=== PATIENT | female | born 1955 | race Caucasian/White ===

== ENCOUNTER 2016-09-23 | Outpatient (CLI) | END 2016-09-23 19:22 | disposition critical access hospital (66) | CPT/HCPCS: A0425; A0427 ==

== ENCOUNTER 2016-09-23 19:40 | Emergency (ER) | END 2016-09-23 23:50 | disposition short-term general hospital (02) | CPT/HCPCS: 36415; 71020; 80053; 82550; 82553; 83690; 84484; 85025; 93005; 93010; 96374; 96375; 99284; A9270 ==

== ENCOUNTER 2016-10-04 | Outpatient (CLI) | payer MEDICAID | END 2016-10-04 16:30 | disposition home or self-care (01) | DX: I21.4 Non-ST elevation (NSTEMI) myocardial infarction (principal) ==

== ENCOUNTER 2017-06-06 08:00 | Outpatient (CLI) | payer MEDICAID ==
[2017-06-06 19:39] LABS: BASOPHILS % (AUTO) 0.5 %; HGB - HEMOGLOBIN 14.4 g/dL (12.0-16.0); MEAN CORPUSCULAR HGB CONC 33.9 g/dL (32.0-36.0)
[2017-06-06 19:41] LABS: ALBUMIN/GLOBULIN RATIO 2.1 (1.0-2.2); BILIRUBIN,TOTAL 0.5 mg/dL (0.2-1.0); BUN - BLOOD UREA NITROGEN 17 mg/dL (6-20); CALCIUM 9.2 mg/dL (8.5-10.3); CARBON DIOXIDE - CO2 25 mmol/L (21-32); CHLORIDE 106 mmol/L (101-111); CREATININE 1.2 mg/dL (0.4-1.0); GFR - MDRD 46 (>89); GLUCOSE 127 mg/dL (70-100); POTASSIUM 4.3 mmol/L (3.5-5.0); SODIUM 140 mmol/L (135-145); TOTAL PROTEIN 6.8 g/dL (6.7-8.2)
[2017-06-06 19:56] LABS: EOSINOPHILS # (AUTO) 0.1 10^3/uL (0.0-0.7); HCT - HEMATOCRIT 42.5 % (37.0-47.0); LYMPHOCYTES # (AUTO) 1.9 10^3/uL (1.5-3.5); LYMPHOCYTES % (AUTO) 21.4 %; MEAN CORPUSCULAR HEMOGLOBIN 31.3 pg (27.0-31.0); MEAN CORPUSCULAR VOLUME 92.4 fL (81.0-99.0); MEAN PLATELET VOLUME 7.8 fL (7.9-10.8); MONOCYTES # (AUTO) 0.6 10^3/uL (0.0-1.0); MONOCYTES % (AUTO) 6.4 %; NEUTROPHILS # (AUTO) 6.2 10^3/uL (1.5-6.6); NEUTROPHILS % (AUTO) 70.7 %; RED CELL DISTRIBUTION WIDTH 13.9 % (12.0-15.0); UNCORRECTED WHITE BLOOD COUNT 8.8 x10^3/uL; WHITE BLOOD COUNT 8.8 x10^3/uL (4.8-10.8)
== END 2017-06-06 08:01 | disposition home or self-care (01) ==
LOC: LAB.N 08:00
PROVIDERS: ATTEND Nurse Practitioner Gerontology
DX: Z79.899 Other long term (current) drug therapy (principal); I10 Essential (primary) hypertension
CPT/HCPCS: 36415; 80053; 84443; 85025

== ENCOUNTER 2017-11-25 08:00 | Outpatient (CLI) | payer MEDICAID ==
[2017-11-25 19:30] LABS: ALBUMIN 4.3 g/dL (3.2-5.5); BILIRUBIN,TOTAL 0.2 mg/dL (0.2-1.0); CALCIUM 8.9 mg/dL (8.5-10.3); CREATININE 1.1 mg/dL (0.4-1.0); TOTAL PROTEIN 6.4 g/dL (6.7-8.2)
== END 2017-11-25 08:01 | disposition home or self-care (01) ==
LOC: LAB.N 08:00
PROVIDERS: ATTEND Nurse Practitioner Gerontology
DX: R94.4 Abnormal results of kidney function studies (principal)
CPT/HCPCS: 36415; 80053

== ENCOUNTER 2018-05-28 08:57 | Day surgery (SDC) | payer MEDICAID ==
[2018-05-28] MEDS ORDERED: MIDAZOLAM 2 MG/2 ML VIAL IVP ONE ×2 (08:58→11:30)
[2018-05-28] MEDS ORDERED: KETAMINE 500 MG/10 ML VIAL IVP ONE ×2 (08:58→11:30)
[2018-05-28] MEDS ORDERED: LIDOCAINE-MPF 2% 5 ML VIAL IV ONE (08:58)
[2018-05-28] MEDS ORDERED: PROPOFOL 200 MG/20 ML VIAL IVP ONE ×2 (08:58→11:30)
[2018-05-28] MEDS ORDERED: ETOMIDATE 40 MG/20 ML VIAL IVP ONE ×2 (08:58→11:30)
[2018-05-28] MEDS ORDERED: LACTATED RINGERS 1,000 ML IV ONE ×2 (09:26→11:18)
[2018-05-28] MEDS ORDERED: ONDANSETRON 4 MG/2 ML VIAL ONE (09:43)
--- NOTE | 2018-05-28 09:57 | ANESTHESIA ---
Pre-Anesthesia VS, & Labs - Diagnosis nausea and vomiting, screening colonoscopy - Procedure EGD, Colonsocopy Vital Signs: Temp Pulse Resp BP Pulse Ox 35.8 C L 18 108/89 H 97 05/28/18 09:04 05/28/18 09:04 05/28/18 09:04 05/28/18 09:04 Height 5 ft 1 in Weight (kg) 89 kg - NPO >8 hours - Is Patient ?: Not Applicable Home Medications and Allergies Home Medications: Ambulatory Orders Medication Instructions Recorded Confirmed Venlafaxine ER [Effexor ER] 300 mg PO DAILY 03/08/13 05/28/18 busPIRone [Buspar] 15 mg PO BID 03/08/13 05/28/18 Lisinopril 10 mg PO DAILY 06/23/15 05/28/18 hydrOXYzine pamoate [Hydroxyzine 50 mg PO DAILY PRN 06/23/15 05/27/18 Pamoate] Atorvastatin Calcium 80 mg PO DAILY 05/27/18 05/28/18 Metoprolol Succinate 25 mg PO BID 05/27/18 05/28/18 Aspirin [Children's Aspirin] 81 mg ORAL DAILY 05/28/18 05/28/18 Allergies/Adverse Reactions: Allergies Allergy/AdvReac Type Severity Reaction Status Date / Time amitriptyline Allergy Unknown Verified 05/27/18 10:49 hydrocodone bitartrate * Allergy Nausea Verified 05/27/18 10:49 [From Vicodin] codeine AdvReac Intermediate Nausea Verified 05/27/18 10:49 Anes History & Medical History - Anesthetic History Anesthesia Complications: reports: Post-Operative Nausea/Vomiting - Medical History Cardiovascular: reports: Hypertension, High cholesterol, [place] Pulmonary: reports: Shortness of breath, Sleep apnea (no cpap) Gastrointestinal: reports: GERD, Other Urinary: reports: None Musculoskeletal: reports: Osteoarthritis Endocrine/Autoimmune: reports: Type 2 diabetes (BG today 191) Skin: reports: None Smoking Status: Current every day smoker - Surgical History General: Colonoscopy Eyes Ears Nose Throat (EENT): Tonsil/Adenoidectomy Gynecologic: section, Tubal ligation, Hysterectomy Results - EKG Results EKG Comparison: Old EKG unavailable Exam General: Alert Dental: Dentures full Upper, Dentures full Lower Mouth Openin Fingerbreadth Mallampati classification: III Respiratory: Lungs clear Cardiovascular: Regular rate Neurological: Normal gait Mental/Cognitive Status: Alert/Oriented X3 Plan Anesthesia Type: MAC Consent for Procedure(s) Verified and Reviewed: Yes Code Status: Attempt Resuscitation ASA classification: 3-Severe systemic disease Is this case an emergency?: No
[2018-05-28] MEDS ORDERED: LIDO GARGLE 30 ML BOTTLE ONE (10:22)
[2018-05-28 12:42] VITALS: BP 119/66
== END 2018-05-28 08:58 | disposition home or self-care (01) ==
LOC: SDS 08:57
PROVIDERS: ATTEND Internal Medicine Gastroenterology
PROC: 0DJD8ZZ Inspection of Lower Intestinal Tract, Via Natural or Artificial Opening Endoscopic (ICD-10-PCS; 2018-05-28)
PROC: 0DB98ZX Excision of Duodenum, Via Natural or Artificial Opening Endoscopic, Diagnostic (ICD-10-PCS; principal; 2018-05-28 10:00)
PROC: 0DB78ZX Excision of Stomach, Pylorus, Via Natural or Artificial Opening Endoscopic, Diagnostic (ICD-10-PCS; 2018-05-28 10:00)
DX: K29.60 Other gastritis without bleeding (principal); Z12.11 Encounter for screening for malignant neoplasm of colon; K57.90 Diverticulosis of intestine, part unspecified, without perforation or abscess without bleeding; E78.00 Pure hypercholesterolemia, unspecified; K21.9 Gastro-esophageal reflux disease without esophagitis; I25.10 Atherosclerotic heart disease of native coronary artery without angina pectoris; I10 Essential (primary) hypertension; G47.33 Obstructive sleep apnea (adult) (pediatric); E11.9 Type 2 diabetes mellitus without complications; F17.200 Nicotine dependence, unspecified, uncomplicated; Z79.82 Long term (current) use of aspirin; I25.2 Old myocardial infarction
CPT/HCPCS: 43239; 45378; 87081; J7120

== ENCOUNTER 2018-06-02 11:44 | Outpatient (CLI) | payer MEDICAID | END 2018-06-02 11:45 | disposition short-term general hospital (02) | LOC: EMS 11:44 | PROVIDERS: ATTEND Surgery | DX: R68.83 Chills (without fever) (principal); R11.10 Vomiting, unspecified | CPT/HCPCS: A0425; A0427; A0999 ==

== ENCOUNTER 2018-08-04 14:05 | Outpatient (CLI) | payer MEDICAID ==
--- NOTE | 2018-08-04 17:36 | Mammography Report ---
Reason: BREAST PAIN,BILATERAL Procedure Date: 08/04/2018 Accession Number: [id number] / [id number] Procedure: MONIKA - Diagnostic Dig Bilat CPT Code: FULL RESULT: EXAM: Diagnostic Dig Bilat DATE: 08/04/2018 3:44 PM CLINICAL HISTORY: Bilateral symmetric upper nonlocalized breast pain, chronic. No personal history of breast cancer. Family history in mother at age 67 TECHNIQUE: Bilateral CC and MLO views were obtained. COMPARISON: 06/25/2016 through 04/26/2014. FINDINGS: The breasts demonstrate scattered fibroglandular densities bilaterally. Bilateral breasts: There are no suspicious masses, calcifications or areas of distortion. No mammographic finding to correlate with chronic, bilateral nonlocalized upper breast pain. Given nonlocalized pain and chronic history, ultrasound was not performed. IMPRESSION: Negative. RECOMMENDATION: Clinical follow-up with primary care provider for symptoms of bilateral breast pain. Patient repeat should return prior to any recommended imaging interval for increase in current symptoms or new symptoms/concerns. Otherwise, routine annual screening unless otherwise clinically indicated. BI-RADS CATEGORY 1: Negative STANDARD QUALIFYING STATEMENTS: 1. This examination was not reviewed with the aid of Computer-Aided Detection (CAD). 2. A negative or benign imaging report should not preclude biopsy if clinically suspicious findings are present. 3. Dense breasts may obscure an underlying neoplasm. 4. This examination was reviewed with the aid of 3D breast imaging (tomosynthesis).
== END 2018-08-04 14:06 | disposition home or self-care (01) ==
LOC: DI 14:05
PROVIDERS: ATTEND Nurse Practitioner Gerontology
DX: N64.4 Mastodynia (principal); Z80.3 Family history of malignant neoplasm of breast; K27.9 Peptic ulcer, site unspecified, unspecified as acute or chronic, without hemorrhage or perforation; D49.0 Neoplasm of unspecified behavior of digestive system; R11.10 Vomiting, unspecified
CPT/HCPCS: 36415; 74177; 77066; 80053; 85025; Q9967

== ENCOUNTER 2018-08-04 14:07 | Outpatient (CLI) | payer MEDICAID ==
[2018-08-04] MEDS ORDERED: IOVERSOL 320 50 ML VIAL ONE (14:16)
[2018-08-04] MEDS ORDERED: IOPAMIDOL-300 100 ML VIAL ONE (14:16)
[2018-08-04 14:43] LABS: BASOPHILS % (AUTO) 0.4 %; EOSINOPHILS # (AUTO) 0.1 10^3/uL (0.0-0.7); EOSINOPHILS % (AUTO) 1.1 %; LYMPHOCYTES # (AUTO) 1.9 10^3/uL (1.5-3.5); LYMPHOCYTES % (AUTO) 24.5 %; MEAN CORPUSCULAR HEMOGLOBIN 31.4 pg (27.0-31.0); MEAN CORPUSCULAR HGB CONC 34.2 g/dL (32.0-36.0); MEAN CORPUSCULAR VOLUME 91.7 fL (81.0-99.0); MEAN PLATELET VOLUME 6.9 fL (7.9-10.8); MONOCYTES # (AUTO) 0.7 10^3/uL (0.0-1.0); MONOCYTES % (AUTO) 8.8 %; NEUTROPHILS # (AUTO) 5.1 10^3/uL (1.5-6.6); NEUTROPHILS % (AUTO) 65.2 %; PLT - PLATELET COUNT 276 10^3/uL (130-450); RED BLOOD COUNT 4.46 10^6/uL (4.20-5.40); RED CELL DISTRIBUTION WIDTH 12.8 % (12.0-15.0); WHITE BLOOD COUNT 7.8 x10^3/uL (4.8-10.8)
[2018-08-04 14:55] LABS: ALBUMIN 4.7 g/dL (3.2-5.5); BILIRUBIN,TOTAL 0.7 mg/dL (0.2-1.0); CALCIUM 9.4 mg/dL (8.5-10.3); CREATININE 1.2 mg/dL (0.4-1.0)
[2018-08-04] MEDS ORDERED: IOVERSOL 320 50 ML VIAL PO ONE (16:51)
[2018-08-04] MEDS ORDERED: IOPAMIDOL-300 100 ML VIAL IVP ONE (16:51)
--- NOTE | 2018-08-05 16:08 | CT Report ---
Reason: NEOPLASM OF STOMACH Procedure Date: 08/04/2018 Accession Number: [id number] / [id number] Procedure: CT - Abdomen/Pelvis W/ CPT Code: FULL RESULT: EXAM: CT ABDOMEN AND PELVIS EXAM DATE: 08/04/2018 03:47 PM. CLINICAL HISTORY: Neoplasm of stomach. COMPARISONS: None. TECHNIQUE: Routine helical CT imaging was performed through the abdomen and pelvis. IV contrast: ISOVUE 300 100 mL. Enteric contrast: Yes. Reconstructions: Coronal and sagittal. In accordance with CT protocol optimization, one or more of the following dose reduction techniques were utilized for this exam: automated exposure control, adjustment of mA and/or KV based on patient size, or use of iterative reconstructive technique. FINDINGS: Lung Bases: Unremarkable. Focal platelike atelectasis right lung base. Liver: Normal. No masses. Gallbladder/Bile Ducts: Unremarkable. Spleen: Normal. Pancreas: Normal. Adrenal Glands: Normal. Kidneys: Normal. No masses or hydronephrosis. Peritoneal Cavity/Bowel: Normal. Specifically, the stomach is well distended with positive contrast. There is no appreciable viable mass, mucosal thickening or ulceration. No free fluid, free air or adenopathy. No masses or acute inflammatory process. The appendix is well visualized and normal. Pelvic Organs: Normal. The bladder and visualized pelvic organs are within normal limits. Vasculature: No aneurysms or other significant abnormality. Bones: No significant abnormality. Other: None. IMPRESSION: Normal abdomen and pelvis CT. No appreciable imaging abnormalities of the stomach on CT. RADIA
== END 2018-08-04 14:08 | disposition home or self-care (01) ==
LOC: LAB 14:07
PROVIDERS: ATTEND Internal Medicine Gastroenterology
DX: K27.9 Peptic ulcer, site unspecified, unspecified as acute or chronic, without hemorrhage or perforation (principal); D49.0 Neoplasm of unspecified behavior of digestive system; R11.10 Vomiting, unspecified
CPT/HCPCS: 36415; 74177; 80053; 85025; Q9967

== ENCOUNTER 2020-08-28 16:21 | Outpatient (CLI) | payer MEDICAID ==
--- NOTE | 2020-08-28 16:23 | XRAY Report ---
PROCEDURE: Knee 4 View RT INDICATIONS: R KNEE PX TECHNIQUE: 3 views of the right knee(s) were acquired. COMPARISON: None. FINDINGS: Bones: No fractures or dislocations. No suspicious bony lesions. Right total knee arthroplasty is intact. No radiographic findings to suggest hardware loosening. Soft tissues: No joint effusion. No suspicious soft tissue calcifications. IMPRESSION: No acute radiographic findings. No findings to explain knee pain. Reviewed by: Gema Pruitt MD on 08/28/2020 4:21 PM PST Approved by: Gema Pruitt MD on 08/28/2020 4:21 PM PST Station ID: [id number]
== END 2020-08-28 23:59 | disposition home or self-care (01) ==
LOC: DI.N 16:21
PROVIDERS: ATTEND Orthopaedic Surgery
DX: M25.561 Pain in right knee (principal)

== ENCOUNTER 2021-01-25 14:18 | Outpatient (CLI) | payer MEDICAID ==
[2021-01-25 15:23] VITALS: BP 135/84
--- NOTE | 2021-01-25 15:23 | SLEEP CARE CONSULTATION ---
Information from patient questionnaire entered by Neelam Birch. I have reviewed and concur with the information entered by Neelam Birch. This document represents the service I personally performed and the decisions made by me, Mar Lisa ARNP. History of Present Illness Service Date and Time: 01/25/2021 1418 Reason for Visit: New patient Chief Complaint: reports: Insomnia, Unrefreshed sleep, Snoring, Excessive daytime sleepiness, Observed pauses in breathing, Fatigue Date of Onset: 12 years Usual bedtime: 11 pm - 1 am Time it takes to fall asleep: hours Snores at night: Yes Observed to quit breathing while asleep: Yes Number of times waking at night: 2-3 Reasons for waking at night: reports: Snoring, Pain, Bathroom, Other (unknown reason). denies: Choking, Gasping for air Toss, Turn, or Twitch while sleeping: Yes Recalls having dreams: Yes Usually gets out of bed at: 5 pm Feels refreshed in the morning: No Morning headache: No Sleepy or fatigued during the day: Yes Ever fallen asleep while driving: No Takes day naps: No Dreams during day naps: No Prior sleep studies: Yes Year and Where: [address] [place] [address] Sleep Additional HPI information: I had the pleasure of seeing LORA SHEPPARD today regarding the possibility of her having a sleep disorder. Her current complaints are excessive daytime sleepiness, insomnia, snoring and fatigue. She got very depressed about 12 years ago when mother got cancer and . She has since had difficulty falling asleep due to not being able to shut down her mind. She has gone a few days without sleep. She got a sleep study that showed sleep apnea and she started with a CPAP machine. She became homeless and was unable to continue CPAP therapy. She is not able to get on a sleep schedule. She has tried trazodone with Dr. Acosta. She tosses and turned, fallen out of bed and her doctor is reluctant to try other sedative medication for sleep. She has tried melatonin or other OTC medication to sleep. She states it doesn't seem to help after a few days. She has been told she stops breathing when asleep since she was a child. She snores and it is loud. She has woken herself up with her snoring. Her ex-hu sband would sleep on couch due to her snoring. She does not feel rested when she gets up in morning. - Parasomnia Symptoms Ever been unable to move upon waking from sleep: No Walks in sleep: No Talks in sleep: Yes Ever acted out dreams in sleep: No Ever felt weak in the knees when startled or emotional: Yes Bothered by creepy, crawly, restless sensations in legs: Yes (usually happen before she goes to sleep, leg cramps mostly with restlessnes) Problems with memory or concentration: Yes (mind is foggy) Subjective Initial [place] Sleepiness Scale score: 2 (in 2020) Past Medical History Past Medical History: reports: Hypertension, Arthritis, Anxiety, Depression Social History The patient's occupation is a Retired. Patient is and lives in [place]. Have you smoked in the past 12 months: Yes Cigarettes per day (20/pack): 10 (or more) Years of smokin (on and off) Quit date: every day Smoking Pack Years: 17.5 Alcohol use: No Caffeine use: Yes Caffeine amount and frequency: 4-5 cans daily Family History Family history of sleep disordered breathing: Yes Family Hx Sleep Apnea: Mother: Snoring, Father: Snoring Allergies and Home Medications Drug allergies reviewed: Yes (amitriptyline, hydrocodone, codiene) Home medication list reviewed: Yes Allergy and home medication list: Effexor Lisinopril Rosuvastatin Metoprolol Review of Systems Cardiovascular: reports: high blood pressure Respiratory: denies: shortness of breath Gastrointestinal: denies: heartburn Neurological: denies: headaches Psychiatric: reports: anxiety, depression. denies: mood disorder Ear/Nose/Throat: reports: dry mouth/throat, hoarseness, tonsillectomy Musculoskeletal: reports: joint pain, neck pain, back pain, muscle pain or cramping Immunologic: reports: sneezing, itching Physical Exam Blood Pressure: 135/84 Cuff size: wrist Heart Rate: 74 O2 Saturation: 96 Height: 5 ft 1 in Weight: 200 lb Body Mass Index: 37.8 BMI Classification: Obese Neck circumference: 15.75 (inches) Nostrils: patent to airflow Mouth and throat: narrow oropharynx Soft palate: long Uvula visualization: 50% Mallampati Class II Tongue: enlarged in size with teeth nguyen on lateral edges Tonsils: absent bilaterally Chin and jaw: normal size and position Neck: normal w/o lymphadenopathy or thyromegaly Heart: regular rate and rhythm Lungs: clear bilaterally Impression and Plan 1. Suspected Obstructive Sleep Apnea-Hypopnea Syndrome, as suggested by a history of loud and irregular snoring, observed cessation of breath while asleep, unrefreshed sleep, cognitive impairment, and excessive daytime sleepiness. Narrow oropharynx and obesity are common predisposing factors for obstructive sleep apnea-hypopnea syndrome. I recommend proceeding to polysomnography to confirm the diagnosis and to assess severity. If the patient has significant sleep disordered breathing, a manual CPAP titration study will also be performed to find the optimal treatment pressure. I informed the patient of what the sleep studies involve and after some discussion, obtained agreement to proceed. The pathophysiology of obstructive sleep apnea-hypopnea syndrome was discussed with the patient and health risks of cardiovascular and cerebrovascular disease if not treated. Risks of drowsy driving discussed in detail and patient advised to avoid long distance driving and to dust puller at the first sign of drowsiness. Patient agreed to plan. * Schedule polysomnography +- manual CPAP titration study and return in 1-2 weeks after the study to discuss result and initiate therapy. * Avoid long distance driving or driving when feeling sleepy. * Avoid alcohol, sedative and muscle relaxant around bedtime. * Attempt to lose weight. * Review instructions provided by trained office staff on how to prepare for the sleep study. * Return for follow-up after sleep study completed. Counseling Topics: Weight loss health impact Visit Type: In Office Time Spent with Patient (minutes): 30 Provider Statement: I spent 100% of the Face to Face Visit with the patient with greater than 50% spent counseling the patient and coordination of care.
== END 2021-01-25 14:19 | disposition home or self-care (01) ==
LOC: SC 14:18
PROVIDERS: ATTEND Nurse Practitioner Family
DX: G47.10 Hypersomnia, unspecified (principal); R06.81 Apnea, not elsewhere classified; G47.8 Other sleep disorders; R41.9 Unspecified symptoms and signs involving cognitive functions and awareness; F17.200 Nicotine dependence, unspecified, uncomplicated; R06.83 Snoring; E66.8 Other obesity; Z68.37 Body mass index [BMI] 37.0-37.9, adult
CPT/HCPCS: 99203; 99212

== ENCOUNTER 2021-05-01 08:00 | Outpatient (CLI) | payer MEDICAID ==
[2021-05-01 22:50] LABS: BACTERIAL VAGINOSIS DNA NEGATIVE (NEGATIVE); CANDIDA GLABRATA DNA NEGATIVE (NEGATIVE); CANDIDA GROUP DNA NEGATIVE (NEGATIVE); CANDIDA KRUSEI DNA NEGATIVE (NEGATIVE); TRICHOMONAS VAGINALIS DNA NEGATIVE (NEGATIVE)
[2021-05-01 23:28] LABS: CHLAMYDIA TRACHOMATIS DNA NEGATIVE (NEGATIVE); NEISSERIA GONORRHOEAE DNA NEGATIVE (NEGATIVE); TRICHOMONAS VAGINALIS DNA NEGATIVE (NEGATIVE)
== END 2021-05-01 23:59 | disposition home or self-care (01) ==
LOC: LAB.N 08:00
PROVIDERS: ATTEND Family Medicine
DX: N73.9 Female pelvic inflammatory disease, unspecified (principal); N90.89 Other specified noninflammatory disorders of vulva and perineum
CPT/HCPCS: 81599; 87070; 87077; 87086; 87205; 87255; 87491; 87591; 87661; 87801

== ENCOUNTER 2021-07-11 03:07 | Outpatient (CLI) | payer MEDICAID ==
[2021-07-11 18:00] LABS: BASOPHILS % (AUTO) 0.5 %; EOSINOPHILS # (AUTO) 0.1 10^3/uL (0.0-0.7); EOSINOPHILS % (AUTO) 1.8 %; HCT - HEMATOCRIT 45.2 % (37.0-47.0); HGB - HEMOGLOBIN 14.7 g/dL (12.0-16.0); LYMPHOCYTES # (AUTO) 2.6 10^3/uL (1.5-3.5); LYMPHOCYTES % (AUTO) 34.2 %; MEAN CORPUSCULAR HEMOGLOBIN 32.5 pg (27.0-31.0); MEAN CORPUSCULAR HGB CONC 32.5 g/dL (32.0-36.0); MEAN CORPUSCULAR VOLUME 99.8 fL (81.0-99.0); MEAN PLATELET VOLUME 9.3 fL (7.9-10.8); MONOCYTES # (AUTO) 0.6 10^3/uL (0.0-1.0); MONOCYTES % (AUTO) 7.9 %; NEUTROPHILS # (AUTO) 4.2 10^3/uL (1.5-6.6); NEUTROPHILS % (AUTO) 55.2 %; PLT - PLATELET COUNT 294 10^3/uL (130-450); RED BLOOD COUNT 4.53 10^6/uL (4.20-5.40); RED CELL DISTRIBUTION WIDTH 12.2 % (12.0-15.0); WHITE BLOOD COUNT 7.6 x10^3/uL (4.8-10.8)
[2021-07-11 19:02] LABS: ALBUMIN 4.6 g/dL (3.2-5.5); ALBUMIN/GLOBULIN RATIO 1.9 (1.0-2.2); ALKALINE PHOSPHATASE 61 IU/L (42-121); ALT ALANINE AMINOTRANSFERASE 34 IU/L (10-60); AST ASPARTATE AMINOTRANSFERASE 41 IU/L (10-42); BILIRUBIN,TOTAL 0.8 mg/dL (0.2-1.0); BUN - BLOOD UREA NITROGEN 16 mg/dL (6-20); CALCIUM 9.4 mg/dL (8.5-10.3); CARBON DIOXIDE - CO2 30 mmol/L (21-32); CHLORIDE 96 mmol/L (101-111); CHOL/HDL RATIO 2.4 (<4.4); CHOLESTEROL 115 mg/dL; CREATININE 1.1 mg/dL (0.4-1.0); GFR - MDRD 50 (>89); GLUCOSE 167 mg/dL (70-100); HDL CHOLESTEROL 48 mg/dL; LDL CHOLESTEROL,CALCULATED 33 mg/dL; LDL/HDL RATIO 0.7 (<4.4); SODIUM 137 mmol/L (135-145); TRIGLYCERIDES 168 mg/dL; VLDL CHOLESTEROL 34 mg/dL
[2021-07-11 21:12] LABS: ESTIMATED AVERAGE GLUCOSE 126 mg/dL (70-100)
== END 2021-07-11 23:55 | disposition home or self-care (01) ==
LOC: LAB.WCP 03:07
PROVIDERS: ATTEND Family Medicine
DX: I25.10 Atherosclerotic heart disease of native coronary artery without angina pectoris (principal)
CPT/HCPCS: 36415; 80053; 80061; 83036; 83721; 85025

== ENCOUNTER 2021-10-02 13:52 | Outpatient (CLI) | payer MEDICAID ==
[2021-10-02 14:10] LABS: CREATININE 1.2 mg/dL (0.4-1.0)
[2021-10-02] MEDS ORDERED: GADOBUTROL 10 MMOL/10 ML VIAL ONE (15:52)
[2021-10-02] MEDS: GADOBUTROL 10 MMOL/10 ML VIAL IVP ONE (16:59)
--- NOTE | 2021-10-12 17:21 | MRI Report ---
PROCEDURE: Lumbar Spine W/WO INDICATIONS: LUMBER MASS CONTRAST: IV CONTRAST: Gadavist ml: 9 TECHNIQUE: Noncontrast sagittal T1 spin echo and T2 fast spin echo, sagittal STIR, axial T1 and T2 fast spin ech o through the lumbar spine. In cases with scoliosis, additional coronal T2 fast spin echo may be per formed. After the administration of contrast, sagittal and axial T1 spin echo with fat saturation th rough the lumbar spine. COMPARISON: None. FINDINGS: Image quality: Motion is present multiple sequences, limiting evaluation. Alignment and curvature: There is transitional anatomy with what appears to be lumbarization of the first sacral vertebral body. Vertebral bodies are labeled one through 5. Prior to any surgical interv ention, recommend full x-ray spine series for further evaluation. There is trace retrolisthesis of T1 2 on L1, L3 on L4. Marrow: Marrow is of normal overall signal. Mild reactive endplate changes are present at L1-L2, L3- 4. No acute vertebral body compression fractures. No suspicious marrow enhancement. Spinal cord: Conus medullaris terminates at the L2 level. Visualized spinal cord demonstrates ezequiel l signal, without suspicious enhancement. Paraspinous soft tissues: No paravertebral masses or abnormal enhancement. Discs: Mild to moderate desiccation is present throughout the lumbar spine. L1-L2: Mild disc bulge without spinal stenosis. Minimal bilateral foraminal narrowing with facet h ypertrophy. L2-L3: Prominent motion is present at this level. Mild disc bulge with minimal canal narrowing. Mi ld right foraminal narrowing with facet and ligamentum flavum hypertrophy. L3-L4: Prominent motion is present at this level with mild to moderate spinal stenosis as well as e pidural lipomatosis. Mild bilateral foraminal narrowing with facet and ligamentum flavum hypertrophy. L4-L5: Mild disc bulge without spinal stenosis. No foraminal narrowing. Facet hypertrophy is presen t. L5-S1: Mild disc bulge without spinal stenosis. Severe left foraminal narrowing with mild flattenin g of the exiting right L5 nerve root. IMPRESSION: 1. Degenerative changes as above. 2. Severe left foraminal narrowing with flattening of the exiting right L5 nerve root L5-S1 with face t and ligamentum flavum hypertrophy. Reviewed by: Maria E Montes MD on 10/12/2021 5:20 PM PST Approved by: Maria E Montes MD on 10/12/2021 5:20 PM PST Station ID: [id number]
== END 2021-10-02 13:53 | disposition home or self-care (01) ==
LOC: LAB 13:52 → DI 13:53
PROVIDERS: ATTEND Family Medicine
DX: R22.2 Localized swelling, mass and lump, trunk (principal); M47.816 Spondylosis without myelopathy or radiculopathy, lumbar region; E88.2 Lipomatosis, not elsewhere classified; M48.061 Spinal stenosis, lumbar region without neurogenic claudication; M48.07 Spinal stenosis, lumbosacral region
CPT/HCPCS: 36415; 72158; 82565; A9585

== ENCOUNTER 2021-10-19 12:17 | Outpatient (CLI) | payer MEDICAID ==
--- NOTE | 2021-10-19 16:06 | CT Report ---
PROCEDURE: Low Dose Lung Cancer Screen INDICATIONS: HX OF TOBACCO USE TECHNIQUE: Noncontrast low-dose images were acquired from the pulmonary apices to the posterior costophrenic ang les. Multiplanar MIP reformats were then acquired. For radiation dose reduction, the following was used: automated exposure control, adjustment of mA and/or kV according to patient size. COMPARISON: None. FINDINGS: Image quality: Excellent. Lungs and pleura: No suspicious pulmonary nodule or mass. Pleural spaces and central airways are jose ar. Mediastinum: Normal heart size. No pericardial effusion. Coronary atherosclerosis. Normal caliber tho racic aorta and main pulmonary trunk. No threshold enlarged mediastinal or hilar lymph nodes by unenh anced CT examination. Bones and chest wall: No suspicious bony lesions. No vertebral body compression fractures. No axil sky or supraclavicular adenopathy by size criteria. The thyroid is normal in size and there are no incidental findings. Abdomen: Visualized upper abdomen solid organs and bowel loops appear normal in the absence of contr ast. IMPRESSION: Lung RADS category 1. No suspicious pulmonary nodule or mass. Recommendation: Continued annual screening low dose CT of the chest recommended. Coronary atherosclerosis. Consider coronary calcium scoring CT. Reviewed by: Homero Coughlin MD on 10/19/2021 4:05 PM PST Approved by: Homero Coughlin MD on 10/19/2021 4:05 PM PST Station ID: [id number]
== END 2021-10-19 12:18 | disposition home or self-care (01) ==
LOC: DI 12:17
PROVIDERS: ATTEND Family Medicine
DX: Z12.2 Encounter for screening for malignant neoplasm of respiratory organs (principal); Z87.891 Personal history of nicotine dependence

== ENCOUNTER 2022-04-17 08:19 | Outpatient (CLI) | payer MEDICAID ==
--- NOTE | 2022-04-17 16:14 | Mammography Report ---
BILATERAL DIGITAL SCREENING MAMMOGRAM 3D/2D: 04/17/2022 CLINICAL: Family history of breast cancer. Routine screening. Comparison is made to exams dated: 08/04/2018 mammogram, 06/25/2016 mammogram, and 05/10/2015 mammogra m - [facility]. There are scattered fibroglandular elements in both breasts. There are benign calcifications in both breasts. No significant masses, calcifications, or other findings are seen in either breast. There has been no significant interval change. IMPRESSION: BENIGN There is no mammographic evidence of malignancy. A 1 year screening mammogram is recommended. Based on the Tyrer Cuzick model (a risk assessment model) the patients lifetime risk is 11.0% and he r 10 year risk is 5.2%. According to the ACR, ACS, and NCCN guidelines, an annual breast MRI exam nettie ng with mammogram is recommended if the patients lifetime risk is 20% or greater. This exam was interpreted at Station ID: [id number]. NOTE: For mammograms, a report in lay terms will be sent to the patient. Approximately 15% of breast malignancies will not be visualized mammographically. In the management of a palpable breast mass, a negative mammogram must not discourage biopsy of a clinically suspicious lesion. Electronically Signed By: Meet tabares/kyara:04/17/2022 11:20:11 ACR BI-RADS Category 2: Benign Finding(s) 3342F PARENCHYMAL PATTERN: (A) - The breast(s) demonstrate(s) scattered fibroglandular densities. BI-RADS CATEGORY: (2) - 2 RECOMMENDATION: (ANNUAL) - Recommend routine annual screening mammography. [id number] 1 year screening LATERALITY: (B)
== END 2022-04-17 08:20 | disposition home or self-care (01) ==
LOC: DI.N 08:19
DX: Z12.31 Encounter for screening mammogram for malignant neoplasm of breast (principal); Z80.3 Family history of malignant neoplasm of breast

== ENCOUNTER 2022-11-15 12:07 | Outpatient (CLI) | payer MEDICAID ==
--- NOTE | 2022-11-15 13:54 | CT Report ---
PROCEDURE: Low Dose Lung Cancer Screen INDICATIONS: HEAVY SMOKER TECHNIQUE: Noncontrast low-dose axial images were acquired from the pulmonary apices to the posterior costophren ic angles. Multiplanar MIP reformats were then reconstructed. For radiation dose reduction, the follo wing was used: automated exposure control, adjustment of mA and/or kV according to patient size. COMPARISON: 10/19/2021. FINDINGS: Image quality: Excellent. Lungs and pleura: No suspicious pulmonary nodules. Impressive eventration of the right hemidiaphragm with associated chronic linear right basilar atelectasis or scarring. Mediastinum: Heart size is normal. No pericardial effusion. No mediastinal adenopathy by size crit eria. Thoracic aorta and central pulmonary arteries are normal in size. Esophagus is normal in cristobal juan pablo. No hiatal hernia. Bones and chest wall: No suspicious bony lesions. No vertebral body compression fractures. No axil sky or supraclavicular adenopathy by size criteria. The thyroid is normal in size and there are no incidental findings. Abdomen: Visualized upper abdomen solid organs and bowel loops appear normal in the absence of contr ast. IMPRESSION: No suspicious pulmonary nodules. LungRads 1 . Recommend follow-up lung screening CT in 12 months. CLINICAL RECOMMENDATION STATEMENTS: In patients <35 years with an ITN detected on CT, MRI, or extrathyroidal ultrasound, the Committee re commends further evaluation with dedicated thyroid ultrasound if the nodule is "e1 cm and has no susp icious imaging features, and if the patient has normal life expectancy. In patients "e35 years with an ITN detected on CT, MRI, or extrathyroidal ultrasound, the Committee r ecommends further evaluation with dedicated thyroid ultrasound if the nodule is "e1.5 cm and has no s uspicious imaging features, and if the patient has normal life expectancy. (ACR, 2014) Reviewed by: Wing Avery MD on 11/15/2022 1:53 PM PST Approved by: Wing Avery MD on 11/15/2022 1:53 PM PST Station ID: [id number]
== END 2022-11-15 12:08 | disposition home or self-care (01) ==
LOC: DI 12:07
PROVIDERS: ATTEND Nurse Practitioner Family
DX: Z12.2 Encounter for screening for malignant neoplasm of respiratory organs (principal); F17.210 Nicotine dependence, cigarettes, uncomplicated

== ENCOUNTER 2023-03-21 14:40 | Outpatient (CLI) | payer MEDICARE, MEDICAID ==
[2023-03-21 17:48] LABS: BASOPHILS % (AUTO) 0.6 %; EOSINOPHILS # (AUTO) 0.2 10^3/uL (0.0-0.7); EOSINOPHILS % (AUTO) 2.3 %; HCT - HEMATOCRIT 42.7 % (37.0-47.0); HGB - HEMOGLOBIN 14.2 g/dL (12.0-16.0); LYMPHOCYTES # (AUTO) 1.9 10^3/uL (1.5-3.5); LYMPHOCYTES % (AUTO) 29.3 %; MEAN CORPUSCULAR HEMOGLOBIN 30.8 pg (27.0-31.0); MEAN CORPUSCULAR HGB CONC 33.3 g/dL (32.0-36.0); MEAN CORPUSCULAR VOLUME 92.6 fL (81.0-99.0); MEAN PLATELET VOLUME 9.3 fL (7.9-10.8); MONOCYTES # (AUTO) 0.6 10^3/uL (0.0-1.0); MONOCYTES % (AUTO) 8.6 %; NEUTROPHILS # (AUTO) 3.8 10^3/uL (1.5-6.6); NEUTROPHILS % (AUTO) 58.7 %; PLT - PLATELET COUNT 226 10^3/uL (130-450); RED BLOOD COUNT 4.61 10^6/uL (4.20-5.40); RED CELL DISTRIBUTION WIDTH 12.6 % (12.0-15.0); WHITE BLOOD COUNT 6.5 x10^3/uL (4.8-10.8)
[2023-03-21 18:05] LABS: ALBUMIN 4.1 g/dL (3.2-5.5); ALBUMIN/GLOBULIN RATIO 1.5 (1.0-2.2); ALKALINE PHOSPHATASE 56 IU/L (42-121); ALT ALANINE AMINOTRANSFERASE 26 IU/L (10-60); AST ASPARTATE AMINOTRANSFERASE 28 IU/L (10-42); BILIRUBIN,TOTAL 0.5 mg/dL (0.2-1.0); BUN - BLOOD UREA NITROGEN 15 mg/dL (6-20); CALCIUM 9.2 mg/dL (8.5-10.3); CARBON DIOXIDE - CO2 29 mmol/L (21-32); CHLORIDE 103 mmol/L (101-111); CHOL/HDL RATIO 2.4 (<4.4); CHOLESTEROL 129 mg/dL; CREATININE 1.2 mg/dL (0.4-1.0); GFR - MDRD 45 (>89); GLUCOSE 129 mg/dL (70-100); HDL CHOLESTEROL 53 mg/dL; LDL CHOLESTEROL,CALCULATED 47 mg/dL; LDL/HDL RATIO 0.9 (<4.4); SODIUM 139 mmol/L (135-145); TOTAL PROTEIN 6.9 g/dL (6.7-8.2); TRIGLYCERIDES 146 mg/dL; VLDL CHOLESTEROL 29 mg/dL
[2023-03-21 18:13] LABS: THYROID STIMULATING HORMONE 2.87 uIU/mL (0.34-5.60)
[2023-03-21 21:18] LABS: ESTIMATED AVERAGE GLUCOSE 128 mg/dL (70-100); HEMOGLOBIN A1c% 6.1 % (4.27-6.07)
== END 2023-03-21 14:41 | disposition home or self-care (01) ==
LOC: LAB.N 14:40
PROVIDERS: ATTEND Nurse Practitioner Family
DX: I12.9 Hypertensive chronic kidney disease with stage 1 through stage 4 chronic kidney disease, or unspecified chronic kidney disease (principal); E78.5 Hyperlipidemia, unspecified; E66.9 Obesity, unspecified
CPT/HCPCS: 36415; 80053; 80061; 83036; 83721; 84443; 85025

== ENCOUNTER 2023-12-05 08:37 | Outpatient (CLI) | payer MEDICARE | END 2023-12-05 08:38 | disposition left against medical advice (07) | LOC: EMS 08:37 | DX: R25.2 Cramp and spasm (principal); R45.89 Other symptoms and signs involving emotional state ==

== ENCOUNTER 2023-12-05 09:45 | Outpatient (CLI) | payer MEDICARE | END 2023-12-05 09:46 | disposition left against medical advice (07) | LOC: EMS 09:45 | DX: I10 Essential (primary) hypertension (principal); R61 Generalized hyperhidrosis; R51.9 Headache, unspecified; R23.1 Pallor; R11.10 Vomiting, unspecified ==

== ENCOUNTER 2023-12-05 10:43 | Outpatient (CLI) | payer MEDICARE | END 2023-12-05 10:44 | disposition critical access hospital (66) | LOC: EMS 10:43 | DX: R53.81 Other malaise (principal); R11.2 Nausea with vomiting, unspecified; R25.1 Tremor, unspecified; R52 Pain, unspecified; R61 Generalized hyperhidrosis; R23.1 Pallor; R68.83 Chills (without fever) | CPT/HCPCS: A0425; A0427 ==

== ENCOUNTER 2023-12-05 11:03 | Emergency (ER) | payer MEDICAID, MEDICARE ==
--- NOTE | 2023-12-05 11:35 | ED Physician Documentation ---
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 She woke this morning at 3 AM or so feeling very shaky with both leg pain, the thighs and hips. That is much better now but then suddenly developed nausea and vomiting. She denies chest pain but was short of breath on the way here which has resolved. 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, Hysterectomy HEENT: Tonsil/Adenoidectomy - Present Medications Home Medications: Ambulatory Orders Medication Instructions Recorded Confirmed Venlafaxine ER [Effexor ER] 300 mg PO DAILY 03/08/13 05/28/18 busPIRone [Buspar] 15 mg PO BID 03/08/13 05/28/18 hydrOXYzine pamoate [Hydroxyzine 50 mg PO DAILY PRN 06/23/15 05/27/18 Pamoate] lisinopriL [Lisinopril] 10 mg PO DAILY 06/23/15 05/28/18 Atorvastatin Calcium 80 mg PO DAILY 05/27/18 05/28/18 Metoprolol Succinate 25 mg PO BID 05/27/18 05/28/18 Aspirin [Children's Aspirin] 81 mg ORAL DAILY 05/28/18 05/28/18 - Allergies Allergies/Adverse Reactions: Allergies Allergy/AdvReac Type Severity Reaction Status Date / Time amitriptyline Allergy Unknown Verified 12/05/23 11:13 hydrocodone bitartrate * Allergy Nausea Verified 12/05/23 11:13 [From Vicodin] codeine AdvReac Intermediate Nausea Verified 12/05/23 11:13 - Social History Does the pt smoke?: Yes Smoking Status: Current every day smoker Does the pt drink ETOH?: No Does the pt have substance abuse?: Yes - Immunizations Immunizations are current?: Yes PD ED PE NORMAL - Vitals Vital signs reviewed: Yes - General General: Alert and oriented X 3, Other (She appears shaky and is tachycardic) - HEENT HEENT: PERRL, EOMI - Neck Neck: Supple, no meningeal sign, No bony TTP - Cardiac Cardiac: Other (tachy but reg) - Respiratory Respiratory: No respiratory distress, Clear bilaterally - Abdomen Abdomen: Non tender - Extremities Extremities: No deformity, No tenderness to palpate, No edema, No calf tenderness / cord, Other (good cap refill B feet) - Neuro Neuro: Alert and oriented X 3 Eye Opening: Spontaneous Motor: Obeys Commands Verbal: Oriented GCS Score: 15 - Psych Psych: Normal mood, Normal affect Results - Vitals Vitals: Vital Signs - 24 hr 12/05/23 12/05/23 11:10 13:12 Temperature 36.8 C 36.8 C Heart Rate 125 H 118 H Respiratory 20 16 Rate Blood Pressure 114/81 H 135/83 H O2 Saturation 97 94 Oxygen O2 Source Room air - EKG (time done) 1303 EKG releavant findings:: EKG personally interpreted by author of this note. Relevant findings are: Rate: Rate (enter#) (130) Rhythm: Sinus tachycardia Intervals: Normal NM. No: Prolonged QT QRS: Normal Ischemia: Q waves (infero/anterior) Computer interpretation: Agree with computer PD Medical Decision Making - ED course ED course: 68-year-old woman presents with prominent nausea and vomiting, no abdominal pain per se and a benign exam. It all started this morning with leg pain which is much better on its own. She does not appear ill but she is fairly tachycardic. She was administered droperidol for nausea. There is a delay in workup, the lab staff had difficulty getting blood from her. She did get some relief with the initial dose of droperidol and it was repeated. I personally tried to get blood, she actually had a really large vein in her right antecubital fossa that I looked at with ultrasound and we tried to access it but she became agitated demanding to leave before we could get any significant mount of blood drawn. I discussed with her that she may still have a serious emergency medical condition and asked her to reconsider which she is. Subsequently on reevaluation at 2 PM she was feeling much better, nontender on abdominal exam, and passed a p.o. challenge. Given that her symptoms have resolved I agreed to her request to discharge her without lab work but she was given very close return precautions. Her heart rate had improved after IV fluids. Departure - Departure Disposition: 01 Home, Self Care Clinical Impression: Vomiting Qualifiers: Vomiting type: unspecified Nausea presence: with nausea Qualified Code(s): R11.2 - Nausea with vomiting, unspecified Condition: Good Record reviewed to determine appropriate education?: Yes Instructions: ED Nausea Vomiting Comments: You are seen today for vomiting and resolved leg pain. We were unable to get labs as discussed I would like you to return immediately if you get worse again but we were able to improve your symptoms with some medications here and IV fluids. Call your doctor to arrange a follow-up appointment, make the next avai lable appointment. In the interim, return anytime if worse or if new symptoms develop. Forms: PCP List
[2023-12-05] MEDS: DROPERIDOL 5 MG/2 ML VIAL IVP STA ×2 (11:43→13:06)
[2023-12-05] MEDS: SODIUM CHLORIDE 0.9% 1,000 ML IV STA ×2 (11:45→13:15)
[2023-12-05 14:03] VITALS: BP 135/83; O2SAT 94
== END 2023-12-05 14:45 | disposition home or self-care (01) ==
LOC: EDUNIT# → ED 11:03
DX: R11.2 Nausea with vomiting, unspecified (principal); I10 Essential (primary) hypertension; E78.00 Pure hypercholesterolemia, unspecified; I25.2 Old myocardial infarction; G47.30 Sleep apnea, unspecified; E11.9 Type 2 diabetes mellitus without complications; F12.90 Cannabis use, unspecified, uncomplicated
CPT/HCPCS: 80053; 83735; 85025; 93005; 96361; 96374; 96376; 99284